=== PATIENT | male | born 1960 | race Caucasian/White ===

== ENCOUNTER → 2020-11-16 11:43 | Outpatient (ROUT) | payer OTHER, SELFPAY ==
[2020-11-16 12:08] LABS: COVID19 -Nasal RAPID POSITIVE (Negative)
== END ==
PROVIDERS: Visit Provider Family Medicine
DX: U07.1 COVID-19 (principal)
CPT/HCPCS: 87635

== ENCOUNTER → 2022-04-18 11:12 | Outpatient (CLI) | payer OTHER, SELFPAY ==
[2022-04-18 12:14] LABS: Add Manual Diff / Slide Review NO; Basophils Absolute Auto 0 /uL (0-100); Basophils Percent Auto 0.4 % (0-2); Eosinophils Absolute Auto 100 /uL (0-450); Eosinophils Percent Auto 1.6 % (2-4); Hematocrit 42.3 % (41-53); Hemoglobin 14.5 g/dL (13.5-17.5); Lymphocytes Absolute Auto 900 /uL (1100-4500); Lymphocytes Percent Auto 15.6 % (25-40); Mean Corpuscular HGB Conc 34.4 % (30-36); Mean Corpuscular Hemoglobin 29.7 PG (26-34); Mean Corpuscular Volume 86.3 fL (80-100); Monocytes Absolute Auto 400 /uL (0-900); Monocytes Percent Auto 7.4 % (3-14); Neutrophils Absolute Auto 4500 /uL (1500-7000); Platelet Count 353 X10^3/uL (150-400); Red Cell Distribution Width 13.6 % (11.6-14.8); White Blood Cell Count 6.1 X10^3/uL (4.5-11.0)
[2022-04-18 13:04] LABS: Alanine Aminotransferase 26 IU/L (<50); Albumin 4.4 g/dL (3.5-5.0); Albumin Globulin Ratio 1.8 (1.0-2.8); Alkaline Phosphatase 66 U/L (38-126); Aspartate Aminotransferase 28 IU/L (17-59); BUN Creatinine Ratio 13.5 (6-22); Bilirubin Total 0.8 mg/dL (0.2-1.3); Blood Urea Nitrogen 14 mg/dL (9-20); Calcium 9.1 mg/dL (8.4-10.2); Carbon Dioxide 31 mmol/L (22-32); Chloride 103 mmol/L (98-107); Cholesterol 216 mg/dL (140-199); Estimated Glomerular Filt Rate > 60 mL/min (>60); Globulin 2.5 g/dL (1.7-4.1); Glucose 96 mg/dL (80-110); HDL Cholesterol 54 mg/dL (40-60); HEMOLYSIS < 15 (0-50); LDL Cholesterol Calculated 132 mg/dL (<100); Potassium 4.6 mmol/L (3.4-5.1); Sodium 141 mmol/L (137-145); Total Protein 6.9 g/dL (6.3-8.2); Triglycerides 148 mg/dL (35-150)
[2022-04-18 13:36] LABS: Prostate Specific Antigen Scrn 9.72 ng/mL (0.1-4.0)
== END ==
PROVIDERS: Referring Provider Family Medicine; Visit Provider Family Medicine
DX: Z00.00 Encounter for general adult medical examination without abnormal findings (principal); Z12.5 Encounter for screening for malignant neoplasm of prostate
CPT/HCPCS: 36415; 80053; 80061; 85025; G0103

== ENCOUNTER → 2022-05-02 12:43 | Outpatient (CLI) | payer OTHER, SELFPAY ==
[2022-05-02 13:19] LABS: Add Manual Diff / Slide Review NO; Basophils Absolute Auto 0 /uL (0-100); Basophils Percent Auto 0.3 % (0-2); Eosinophils Absolute Auto 100 /uL (0-450); Hematocrit 40.5 % (41-53); Hemoglobin 14.2 g/dL (13.5-17.5); Lymphocytes Absolute Auto 1100 /uL (1100-4500); Mean Corpuscular HGB Conc 35.1 % (30-36); Mean Corpuscular Hemoglobin 30.2 PG (26-34); Mean Corpuscular Volume 85.8 fL (80-100); Monocytes Absolute Auto 400 /uL (0-900); Monocytes Percent Auto 5.8 % (3-14); Neutrophils Absolute Auto 5300 /uL (1500-7000); Neutrophils Percent Auto 76.9 % (50-75); Platelet Count 290 X10^3/uL (150-400); Red Blood Cell Count 4.72 X10^6/uL (4.5-5.9); Red Cell Distribution Width 14.1 % (11.6-14.8); White Blood Cell Count 6.9 X10^3/uL (4.5-11.0)
[2022-05-02 13:34] LABS: Appearance Urine UA CLEAR; Bilirubin Urine UA NEGATIVE (NEGATIVE); Color Urine UA YELLOW; Glucose Urine UA NEGATIVE (Negative); Ketones Urine UA NEGATIVE (NEGATIVE); Leukocyte Esterase Urine UA TRACE (NEGATIVE); Nitrite Urine UA NEGATIVE (Negative); Occult Blood Urine UA NEGATIVE (Negative); Protein Urine UA NEGATIVE (Negative); Specific Gravity Urine UA 1.015 (1.000-1.035); Urobilinogen Urine UA 0.2 E.U./dL (0.2); pH Urine UA 5.5 (4.5-8.0)
[2022-05-02 14:35] LABS: Bacteria Urine None Seen; Culture Indicated Urine Cult Not Indicated; RBC Urine None Seen (0-5/HPF); Squamous Epithelial Cell Urine None Seen (0-5/HPF); WBC Urine 0-1/HPF (0-5/HPF)
[2022-05-02 15:31] LABS: Prostate Specific Antigen 3.87 ng/mL (0.10-4.00)
== END ==
PROVIDERS: PCP Family Medicine; Referring Provider Family Medicine; Visit Provider Family Medicine
DX: R97.20 Elevated prostate specific antigen [PSA] (principal)
CPT/HCPCS: 36415; 81001; 84153; 85025

== ENCOUNTER → 2022-11-15 08:33 | Outpatient (CLI) | payer OTHER, SELFPAY ==
[2022-11-15 11:26] LABS: Alanine Aminotransferase 26 IU/L (<50); Albumin 4.3 g/dL (3.5-5.0); Albumin Globulin Ratio 1.7 (1.0-2.8); Alkaline Phosphatase 67 U/L (38-126); Aspartate Aminotransferase 27 IU/L (17-59); BUN Creatinine Ratio 12.5 (6-22); Bilirubin Total 0.7 mg/dL (0.2-1.3); Blood Urea Nitrogen 14 mg/dL (9-20); Calcium 9.1 mg/dL (8.4-10.2); Carbon Dioxide 30 mmol/L (22-32); Chloride 103 mmol/L (98-107); Cholesterol 216 mg/dL (140-199); Estimated Glomerular Filt Rate > 60 mL/min (>60); Globulin 2.5 g/dL (1.7-4.1); Glucose 107 mg/dL (80-110); HDL Cholesterol 69 mg/dL (40-60); LDL Cholesterol Calculated 133 mg/dL (<100); Potassium 4.8 mmol/L (3.4-5.1); Sodium 138 mmol/L (137-145); Total Protein 6.8 g/dL (6.3-8.2); Triglycerides 70 mg/dL (35-150)
[2022-11-15 11:33] LABS: HEMOLYSIS < 15 (0-50)
[2022-11-15 12:43] LABS: Prostate Specific Antigen 3.67 ng/mL (0.10-4.00)
== END ==
PROVIDERS: PCP Family Medicine; Referring Provider Family Medicine; Visit Provider Family Medicine
DX: E78.5 Hyperlipidemia, unspecified (principal); F10.10 Alcohol abuse, uncomplicated; F34.1 Dysthymic disorder; R97.20 Elevated prostate specific antigen [PSA]; Z00.00 Encounter for general adult medical examination without abnormal findings
CPT/HCPCS: 36415; 80053; 80061; 84153

== ENCOUNTER → 2023-06-26 14:01 | Outpatient (CLI) | payer OTHER, SELFPAY ==
[2023-06-26 19:02] LABS: Alanine Aminotransferase 35 IU/L (<50); Albumin 4.4 g/dL (3.5-5.0); Albumin Globulin Ratio 1.7 (1.0-2.8); Alkaline Phosphatase 61 U/L (38-126); Aspartate Aminotransferase 31 IU/L (17-59); BUN Creatinine Ratio 14.4 (6-22); Blood Urea Nitrogen 18 mg/dL (9-20); Carbon Dioxide 26 mmol/L (22-32); Chloride 101 mmol/L (98-107); Cholesterol 245 mg/dL (140-199); Estimated Glomerular Filt Rate > 60 mL/min (>60); Globulin 2.6 g/dL (1.7-4.1); Glucose 105 mg/dL (80-110); HDL Cholesterol 62 mg/dL (40-60); HEMOLYSIS < 15 (0-50); LDL Cholesterol Calculated 131 mg/dL (<100); Potassium 4.1 mmol/L (3.4-5.1); Sodium 138 mmol/L (137-145); Triglycerides 261 mg/dL (35-150)
[2023-06-26 19:32] LABS: Prostate Specific Antigen 3.15 ng/mL (0.10-4.00)
== END ==
PROVIDERS: PCP Family Medicine; Referring Provider Family Medicine; Visit Provider Family Medicine
DX: E78.5 Hyperlipidemia, unspecified (principal); R97.20 Elevated prostate specific antigen [PSA]
CPT/HCPCS: 36415; 80053; 80061; 84153

== ENCOUNTER → 2023-07-05 11:17 | Outpatient (CLI) | payer OTHER, SELFPAY ==
[2023-07-05 13:41] LABS: Cholesterol 243 mg/dL (140-199); HDL Cholesterol 66 mg/dL (40-60); LDL Cholesterol Calculated 146 mg/dL (<100); Triglycerides 157 mg/dL (35-150)
== END ==
PROVIDERS: PCP Family Medicine; Referring Provider Family Medicine; Visit Provider Family Medicine
DX: E78.5 Hyperlipidemia, unspecified (principal)
CPT/HCPCS: 80061

== ENCOUNTER → 2025-03-30 16:18 | Outpatient (CLI) | payer OTHER, SELFPAY ==
[2025-03-30 16:51] LABS: Add Manual Diff / Slide Review NO; Basophils Absolute Auto 0 /uL (0-100); Basophils Percent Auto 0.4 % (0-2); Eosinophils Absolute Auto 100 /uL (0-450); Eosinophils Percent Auto 3.2 % (2-4); Hematocrit 45.2 % (41-53); Hemoglobin 15.9 g/dL (13.5-17.5); Lymphocytes Absolute Auto 1000 /uL (1100-4500); Lymphocytes Percent Auto 22.1 % (25-40); Mean Corpuscular HGB Conc 35.3 % (30-36); Mean Corpuscular Hemoglobin 31.1 PG (26-34); Mean Corpuscular Volume 88.1 fL (80-100); Monocytes Absolute Auto 400 /uL (0-900); Monocytes Percent Auto 9.7 % (3-14); Neutrophils Absolute Auto 2900 /uL (1500-7000); Neutrophils Percent Auto 64.6 % (50-75); Platelet Count 315 X10^3/uL (150-400); Red Blood Cell Count 5.13 X10^6/uL (4.5-5.9); Red Cell Distribution Width 13.8 % (11.6-14.8); White Blood Cell Count 4.4 X10^3/uL (4.5-11.0)
[2025-03-30 17:12] LABS: Alanine Aminotransferase 25 IU/L (<50); Albumin 4.8 g/dL (3.5-5.0); Albumin Globulin Ratio 1.9 (1.0-2.8); Alkaline Phosphatase 71 U/L (38-126); Aspartate Aminotransferase 36 IU/L (17-59); BUN Creatinine Ratio 13.6 (6-22); Bilirubin Total 0.9 mg/dL (0.2-1.3); Blood Urea Nitrogen 14 mg/dL (9-20); Calcium 9.4 mg/dL (8.4-10.2); Carbon Dioxide 21 mmol/L (22-32); Chloride 105 mmol/L (98-107); Cholesterol 222 mg/dL (140-199); Estimated Glomerular Filt Rate > 60 mL/min (>60); Globulin 2.5 g/dL (1.7-4.1); Glucose 86 mg/dL (70-99); HDL Cholesterol 72 mg/dL (40-60); HEMOLYSIS < 15 (0-50); LDL Cholesterol Calculated 114 mg/dL (<100); Potassium 4.5 mmol/L (3.4-5.1); Sodium 139 mmol/L (137-145); Total Protein 7.3 g/dL (6.3-8.2); Triglycerides 181 mg/dL (35-150)
[2025-03-30 17:40] LABS: Prostate Specific Antigen Scrn 3.37 ng/mL (0.1-4.0)
[2025-03-30 17:43] LABS: TSH w/ Reflex to FT4 2.01 uIU/mL (0.47-4.68)
== END ==
PROVIDERS: PCP Family Medicine; Referring Provider Family Medicine; Visit Provider Family Medicine
DX: Z00.00 Encounter for general adult medical examination without abnormal findings (principal); Z12.5 Encounter for screening for malignant neoplasm of prostate
CPT/HCPCS: 36415; 80053; 80061; 84443; 85025; G0103

== ENCOUNTER 2025-08-11 14:05 | Emergency (ER) | payer OTHER, SELFPAY ==
[2025-08-11] VITALS (10 sets, daily range): BP systolic 132–177; BP diastolic 83–94; PULSE 88–109; RESP 14–24; TEMP 37.4; O2SAT 95–100; BMI 27.1
--- NOTE | 2025-08-11 14:26 | EKG_ITS ---
[address] [address] Test Date: 2025-08-11 Pat Name: Yosi Phillips Department: Room: Gender: Male Commercial Sales Representative: SHUN : 1960 Requested By: Order Number: [id number] Reading MD: Godfrey Colon MD Measurements Intervals [place] Rate: 102 P: 71 CO: 138 QRS: -57 QRSD: 86 T: 80 QT: 334 QTc: 435 Interpretive Statements Sinus tachycardia with occasional premature ventricular complexes Left anterior fascicular block Minimal voltage criteria for LVH, may be normal variant ( [place] product ) Nonspecific ST abnormality NO PRIOR TRACING Electronically Signed On 08-15-2025 7:43:49 PDT by Godfrey Colon MD
--- NOTE | 2025-08-11 14:40 | ED_ITS ---
HPI - Abdominal Pain General Chief Complaint: Abdominal Pain Stated Complaint: Pain in stomach/Diarrhea Time Seen by Provider: 08/11/25 14:14 Source: patient, RN notes reviewed and old records reviewed Mode of arrival: Ambulatory Limitations: no limitations History of Present Illness HPI narrative: 65-year-old male history of alcohol use presents with complaint of bilateral lower abdominal pain that started on Friday night with diarrhea. Patient states no black or bloody stools. He notes little bit of lower back pain bilaterally states he has chronic back pain. He is unsure if this is new or different from his normal. No fevers but he has had chills. He has had nausea but he states no persistent vomiting. He denies any chest pain or pressure. States he has a regular rate his breathing because it hurts in his belly but denies pleuritic chest pain. Patient notes no new swelling in his extremities. States it is sensation is sort of a stinging burning sensation across his lower abdomen worsened when he has a any sort of fluids. Nothing really seems to make it better other than not eating or drinking. Has not had similar symptoms in the past. States no daily medical problems. Denies any prior surgeries. Reports an allergy to yellow jackets. Does chew tobacco, drinks 6 alcoholic drinks 4-5 nights weekly denies any withdrawal symptoms if he does not have alcohol, denies any recreational drugs other than marijuana nightly. No IV or other drugs. Has a primary care physician Dr. Ray. Related Data Previous Rx's ?Medication ?Instructions ?Recorded metronidazole 1 % topical gel 1 applic topical BEDTIME Rosacea 06/07/22 (Metrogel) #60 grams escitalopram oxalate 20 mg tablet 30 mg (1.5 x 20 mg) PO DAILY #135 07/23/23 tabs hydrocodone 5 mg-acetaminophen 325 1 tab PO Q6H PRN pa in #7 tabs 08/11/25 mg tablet ondansetron 4 mg disintegrating 4 mg PO Q6H PRN nausea and 08/11/25 tablet vomiting #5 tabs Allergies Allergy/AdvReac Type Severity Reaction Status Date / Time No Known Drug Allergies Allergy Verified 08/11/25 14:22 Review of Systems Review of Systems ROS Unobtainable: All systems reviewed & are unremarkable except as noted in HPI and below Patient History Medical History Skin lesion PTSD (post-traumatic stress disorder) (~1999) Herpes (~1981) Well adult exam Alcohol abuse Borderline hyperlipidemia Depression (~1999) Elevated PSA (~2021) Seasonal allergies Family History Father History of heart disease Hypertension Hyperlipidemia Diabetes mellitus Social History Smoking Status: Never smoker Smoking Status: Never smoker Alcohol type: beer Exam Narrative Exam Narrative: GENERAL: Alert and oriented x three, male in moderate distress HEENT: Head normocephalic, atraumatic, EOMI, pupils reactive, face symmetric, moist mucous membranes NECK: Supple, full range of motion CARDIOVASCULAR: Regular rate and rhythm without murmurs, rubs or gallops. RESPIRATORY: Breath sounds equal bilaterally, no wheezes rales or rhonchi. ABDOMEN: Soft, mild bilateral lower abdominal tenderness. Normoactive bowel sounds all 4 quadrants. No guarding or rebound, rigidity, no mass, no pulsatile mass or bruit. : No CVA tenderness EXTREMITIES: Normal range of motion, no clubbing or edema. Neurovascularly intact NEUROLOGICAL: Cranial nerves II through XII grossly intact. Moving all extremities SKIN: Warm, dry, no petechiae, no rashes or lesions. Initial Vital Signs Initial Vital Signs: Vital Signs Temperature 99.3 F 08/11/25 14:17 Pulse Rate 109 H 08/11/25 14:17 Respiratory Rate 20 08/11/25 14:17 Blood Pressure 132/93 H 08/11/25 14:17 Pulse Oximetry 100 08/11/25 14:17 Oxygen Delivery Method Room Air 08/11/25 14:17 Course Orders Ordered: ED Orders 08/11/25 14:26 EKG-12 Lead Stat 08/11/25 14:30 Urine Culture Stat Urine Microscopic Stat 08/11/25 14:36 Complete Blood Count AUTO DIFF Stat Comprehensive Metabolic Panel Stat Lipase Stat 08/11/25 15:13 CT abdomen pelvis w con Stat 08/11/25 16:55 Blood Culture Stat Lactate (Lactic Acid) Stat Procalcitonin Stat Discontinued Medications Sodium Chloride (Normal Saline 0.9%) 2,721.54 mls @ 907.18 mls/hr 30 ml/kg infuse over 3 hr (2721.54 ml) IV NOW ONE Stop: 08/11/25 18:12 Last Admin: 08/11/25 16:18 Dose: 907.18 mls/hr Documented By: RADHA Morphine Sulfate (Morphine 4 Mg/Ml Inj) 4 mg IV NOW ONE Stop: 08/11/25 15:15 Last Admin: 08/11/25 16:19 Dose: 4 mg Documented By: RADHA Ondansetron HCl (Ondansetron 4 Mg/2 Ml Inj) 4 mg IV NOW PRN PRN Reason: Nausea And Vomiting Ondansetron HCl (Ondansetron 4 Mg Odt) 4 mg PO NOW PRN PRN Reason: Nausea And Vomiting Ondansetron HCl (Ondansetron 4 Mg/2 Ml Inj) 4 mg IV NOW ONE Stop: 08/11/25 15:15 Last Admin: 08/11/25 16:19 Dose: 4 mg Documented By: RADHA Vital Signs Vital signs: Vital Signs - 8 hr 08/11/25 14:17 08/11/25 14:36 08/11/25 15:00 Temperature 99.3 F Pulse Rate 109 H 100 H Respiratory Rate 20 16 Blood Pressure 132/93 H 163/89 H 162/94 H Pulse Oximetry 100 99 Oxygen Delivery Method Room Air Room Air 08/11/25 15:00 08/11/25 15:30 08/11/25 15:30 Temperature Pulse Rate 103 H 93 H Respiratory Rate 16 Blood Pressure 177/83 H Pulse Oximetry 98 99 Oxygen Delivery Method Room Air 08/11/25 16:00 08/11/25 16:00 08/11/25 16:25 Temperature Pulse Rate 97 H Respiratory Rate 20 Blood Pressure 148/86 H 150/84 H Pulse Oximetry 95 Oxygen Delivery Method 08/11/25 16:25 08/11/25 16:30 08/11/25 16:30 Temperature Pulse Rate 99 H 93 H Respiratory Rate 24 20 Blood Pressure 160/87 H Pulse Oximetry 98 Oxygen Delivery Method Room Air 08/11/25 17:00 08/11/25 17:30 08/11/25 17:40 Temperature Pulse Rate 88 92 H Respiratory Rate 15 14 Blood Pressure 161/84 H Pulse Oximetry 98 96 Oxygen Delivery Method 08/11/25 17:40 Temperature Pulse Rate 93 H Respiratory Rate 23 Blood Pressure Pulse Oximetry 98 Oxygen Delivery Method Room Air MDM - Abdominal Pain Lab Data 08/11/25 14:36 08/11/25 14:36 Labs: Lab Results 08/11/25 08/11/25 08/11/25 Range/Units 14:30 14:36 16:55 WBC 11.8 H (4.5-11.0) X10^3/uL RBC 5.55 (4.5-5.9) X10^6/uL Hgb 17.0 (13.5-17.5) g/dL Hct 48.2 (41-53) % MCV 86.9 (80-100) fL MCH 30.6 (26-34) PG MCHC 35.2 (30-36) % RDW 13.9 (11.6-14.8) % Plt Count 258 (150-400) X10^3/uL Neut % (Auto) 89.1 H (50-75) % Lymph % (Auto) 5.4 L (25-40) % [place] % (Auto) 5.1 (3-14) % Eos % (Auto) 0.1 L (2-4) % Baso % (Auto) 0.3 (0-2) % Neut # (Auto) 46580 H (2709-6439) /uL Lymph # (Auto) 600 L (7050-0863) /uL [place] # (Auto) 600 (0-900) /uL Eos # (Auto) 0 (0-450) /uL Baso # (Auto) 0 (0-100) /uL Sodium 133 L (137-145) mmol/L Potassium 3.5 (3.4-5.1) mmol/L Chloride 97 L (98-107) mmol/L Carbon Dioxide 21 L (22-32) mmol/L BUN 15 (9-20) mg/dL Creatinine 1.63 H (0.66-1.25) mg/dL Estimated GFR 46 L (>60) mL/min BUN/Creatinine Ratio 9.2 (6-22) Glucose 127 H (70-99) mg/dL Lactate 0.8 (0.7-2.1) mmol/L Calcium 9.6 (8.4-10.2) mg/dL Total Bilirubin 1.7 H (0.2-1.3) mg/dL AST 29 (17-59) IU/L ALT 18 (<50) IU/L Alkaline Phosphatase 82 (38-126) U/L Total Protein 8.1 (6.3-8.2) g/dL Albumin 4.8 (3.5-5.0) g/dL Globulin 3.3 (1.7-4.1) g/dL Albumin/Globulin Ratio 1.5 (1.0-2.8) Lipase 27 (23-300) U/L Procalcitonin 0.178 (<0.5) ng/mL Urine RBC 0-1/hpf (0-5/HPF) Urine WBC 1-5/hpf (0-5/HPF) Ur Squamous Epith Cells 0-1 /hpf (0-5/HPF) Urine Bacteria Occasional (0-1) (None) Granular Casts 0-1/lpf (None) Ur Culture Indicated? Vol Urine Centrifuged 10ml (spun) Point of care testing: Urine Dip Bedside Urine Glucose Negative Bedside Urine Bilirubin - Negative Bedside Urine Ketone +/- 5 Urine Specific [place] 1.015 Bedside Urine Occult Blood + Bedside Urine pH 6.0 Bedside Urine Protein ++ 100 Bedside Urine Urobilinogen - Negative Bedside Urine Nitrite - Negative Bedside Urine Leukocytes +/- 15 Esterase ECG Data Attestation: I personally reviewed and interpreted this ECG as follows: Prior ECG tracings: not available for review Interpretation: Sinus tachycardia occasional PVCs rate of 102 OK 138 QRS 86 QTC of 435, no acute ST-elevation or depression. No prior for comparison. [facility] Narrative Medical decision making narrative: EKG shows sinus tachycardic occasional PVCs no priors for comparison. No ST elevation depression appreciated. Labs show white count of 11 hemoglobin of 17 platelets of 258 predominance of neutrophils, chemistries shows sodium 133 chloride 97 CO2 of 21 creatinine is 1.63 past in March was 1.03, potassium is appropriate as well as BUN, glucose is 127 bilirubin is 1.7 but with normal AST ALT and lipase. Alk-phos is normal at 29. Point of care urine shows leuks, no nitrates or urobilinogen, positive for protein positive for blood, microscopy shows 1 red cell 1-5 white cells 1 squamous occasional bacteria [address] abdomen pelvis moderate generalized colonic wall thickening, correlate for infectious versus inflammatory has a colitis, no evidence of perforation or abscess, given nodular thickening consider C diff colitis. Moderate generalized bladder wall thickening, bladder outlet obstruction suspected male with a [place]. Correlate with a UTI. Normal appendix. Bilateral L5 pars defects with the associated minimal grade 1 L5-S1 anterolisthesis, L5-S1 degenerative change. Patient received fluids, antiemetics and pain medication. Discuss With the patient about observation for KRANTHI, colitis with diarrhea. Patient politely defers. Patient has not had any known recent antibiotics or exposures to C diff. he prefers to return home is comfortable to follow up and have repeat labs to check his renal function. He will try to give a sample here has not been successful so far for stool. We will give give sample and Rx for gi panel. Discussed return precautions. Discharge Plan Departure Patient Disposition: Home Clinical Impression: Colitis, KRANTHI (acute kidney injury) Instructions: DI for Colitis Activity Restrictions/Additional Instructions: Follow up for rechecked your imaging does show changes consistent with a colitis, there variety of reasons this can occur sometimes can be inflammatory versus infectious. I would recommend that you follow up to have testing of your stool for C diff colitis. Your labs did show that you has a little bit of a kidney injury or decreasing your renal function. You should follow up with your physician to have this rechecked. Make sure you are hydrating regularly. Can take Zofran 1 tablet every 6 hours for any nausea or vomiting. You can take pain medication as prescribed. This medication can make you sleepy do not drive, perform hazardous activities or make any major decisions while taking it. This medication will make you constipated please take a stool softener once to twice daily until stools are soft and regular. Prescription sent to [facility] in [place]. Please return for fevers, new or worsening abdominal back or flank pain, any persistent vomiting, any black or bloody stools, increasing or worsening diarrhea, signs of dehydration or other new or concerning changes. Prescriptions: New ondansetron 4 mg tablet,disintegrating 4 mg PO Q6H PRN (Reason: nausea and vomiting) Qty: 5 0RF hydrocodone-acetaminophen 5-325 mg tablet 1 tab PO Q6H PRN (Reason: pain) Qty: 7 0RF No Action metronidazole [Metrogel] 1 % gel 1 applic topical BEDTIME Qty: 60 1RF escitalopram oxalate 20 mg tablet 30 mg PO DAILY MDD 30mg Qty: 135 3RF Rx Instructions: Take one and one-half tablet by mouth daily. Referrals: Ray,Axel T, DO [Primary Care Provider, Family Practice] Stand Alone Forms: Patient Portal/API
[2025-08-11 14:44] LABS: Add Manual Diff / Slide Review NO; Hematocrit 48.2 % (41-53); Hemoglobin 17.0 g/dL (13.5-17.5); Lymphocytes Absolute Auto 600 /uL (1100-4500); Mean Corpuscular HGB Conc 35.2 % (30-36); Mean Corpuscular Hemoglobin 30.6 PG (26-34); Mean Corpuscular Volume 86.9 fL (80-100); Platelet Count 258 X10^3/uL (150-400)
[2025-08-11 15:00] LABS: Alanine Aminotransferase 18 IU/L (<50); Albumin 4.8 g/dL (3.5-5.0); Albumin Globulin Ratio 1.5 (1.0-2.8); Alkaline Phosphatase 82 U/L (38-126); Blood Urea Nitrogen 15 mg/dL (9-20); Calcium 9.6 mg/dL (8.4-10.2); Carbon Dioxide 21 mmol/L (22-32); Chloride 97 mmol/L (98-107); Estimated Glomerular Filt Rate 46 mL/min (>60); Globulin 3.3 g/dL (1.7-4.1); Glucose 127 mg/dL (70-99); HEMOLYSIS < 15 (0-50); Lipase 27 U/L (23-300); Potassium 3.5 mmol/L (3.4-5.1); Sodium 133 mmol/L (137-145); Total Protein 8.1 g/dL (6.3-8.2)
--- NOTE | 2025-08-11 15:13 | DI.CT.S_ITS ---
PROCEDURE: CT ABDOMEN PELVIS W CON INDICATIONS: abd pain, b/l lower x 3 days, diarrhea TECHNIQUE: After the administration of intravenous contrast, axial sections acquired from the lung bases to the pubic symphysis. Coronal and sagittal reformats were performed. For radiation dose reduction, the following was used: automated exposure control, adjustment of mA and/or kV according to patient size. COMPARISON: None. FINDINGS: Image quality: Diagnostic. Lower Chest: No significant findings. ABDOMEN: Liver: No solid mass. Gallbladder: No radiopaque gallstones or wall thickening. Biliary ducts: No biliary dilation. Pancreas: No ductal dilation. Spleen: Size is within normal limits. Adrenal Glands: No adrenal nodules. Kidneys and Ureters: No hydronephrosis. No solid mass. No complex renal cystic lesion which requires follow up. Stomach and Bowel: Moderate generalized wall thickening can be seen within the colon, with mild surrounding inflammatory change. A normal appendix is noted. No dilated loops of small bowel are seen. Peritoneum: No peritoneal abscess is seen. No abnormal intraperitoneal fluid. No free air. Ventral Wall: No significant ventral hernia. Abdominal Nodes: No retroperitoneal or mesenteric adenopathy by size criteria. Vessels: Aorta and inferior vena cava are normal in size. PELVIS: Pelvic Organs: Unremarkable. Bladder: Moderate generalized bladder wall thickening can be seen. Pelvic Nodes: No enlarged lymph nodes. Miscellaneous: No inguinal hernias are seen. Bones: No aggressive osseous abnormality. Moderate disc space narrowing can be seen at the L5-S1 level. Bilateral L5 pars defects are seen with minimal grade 1 L5-S1 anterolisthesis. IMPRESSION: Moderate generalized colonic wall thickening can be seen. Please correlate with potential infectious and inflammatory causes of colitis. No findings of perforation or abscess can be seen. Given the nodular thickening, please consider C difficile colitis. Moderate generalized bladder wall thickening can be seen. Bladder outlet obstruction is suspected in a male patient of this age. However, please correlate with UTI. Normal appendix. Additional findings: Bilateral L5 pars defects, with associated minimal grade 1 L5-S1 anterolisthesis L5-S1 degenerative change Dictated by: Ankit Danielson M.D. on 08/11/2025 at 15:17 Approved by: Ankit Danielson M.D. on 08/11/2025 at 15:19
[2025-08-11] MEDS: SODIUM CHLORIDE 0.9% 2,721.54 ML 907.18 ML IV (16:18)
[2025-08-11] MEDS: ONDANSETRON 4 MG/2 ML INJ IV (16:19)
[2025-08-11] MEDS: MORPHINE 4 MG/ML INJ IV (16:19)
[2025-08-11 17:25] LABS: Lactate (Lactic Acid) 0.8 mmol/L (0.7-2.1)
[2025-08-11 17:43] LABS: Procalcitonin 0.178 ng/mL (<0.5)
== END 2025-08-11 17:55 | disposition home or self-care (01) ==
PROVIDERS: Emergency Provider Emergency Medicine; PCP Family Medicine
DX: K52.9 Noninfective gastroenteritis and colitis, unspecified (principal); N17.9 Acute kidney failure, unspecified; M54.50 Low back pain, unspecified
CPT/HCPCS: 36415; 74177; 80053; 81003; 81015; 83605; 83690; 84145; 85025; 87040; 87086; 93005; 96361; 96374; 96375; 99284; J2270; J2405; Q9967

== ENCOUNTER 2025-08-13 14:58 | Emergency (ER) | payer OTHER, SELFPAY ==
[2025-08-13] VITALS (7 sets, daily range): BP systolic 148–161; BP diastolic 84–100; PULSE 66–87; RESP 18; TEMP 36.2; O2SAT 98–100; BMI 25.0
--- NOTE | 2025-08-13 15:31 | DI.CT.S_ITS ---
PROCEDURE: CT ABDOMEN PELVIS W CON INDICATIONS: abd pain TECHNIQUE: After the administration of intravenous contrast, axial sections acquired from the lung bases to the pubic symphysis. Coronal and sagittal reformats were performed. For radiation dose reduction, the following was used: automated exposure control, adjustment of mA and/or kV according to patient size. COMPARISON: [facility], CT, CT ABDOMEN PELVIS W CON, 08/11/2025, 15:25. FINDINGS: Image quality: Diagnostic. Lower Chest: No significant findings. ABDOMEN: Liver: No solid mass. Gallbladder: No radiopaque gallstones or wall thickening. Biliary ducts: No biliary dilation. Pancreas: No ductal dilation. Spleen: Size is within normal limits. Adrenal Glands: No adrenal nodules. Kidneys and Ureters: No hydronephrosis. No solid mass. No complex renal cystic lesion which requires follow up. Stomach and Bowel: Bowel is of normal caliber without obstruction. There is diffuse wall thickening which is not significantly changed compared to the previous exam. There is some relative sparing of portions of the transverse and descending colon which is an interval change. Peritoneum: No abnormal intraperitoneal fluid. Mesenteric edema is seen about the colon. No free air. Ventral Wall: No significant ventral hernia. Abdominal Nodes: No retroperitoneal or mesenteric adenopathy by size criteria. Vessels: Aorta and inferior vena cava are normal in size. PELVIS: Pelvic Organs: The prostate is enlarged measuring 5.4 cm in transverse dimension. Bladder: There is mild circumferential wall thickening and mass effect from the adjacent prostate. Pelvic Nodes: No enlarged lymph nodes. Miscellaneous: No inguinal hernias are seen. Bones: No aggressive osseous abnormality. IMPRESSION: Persistent diffuse bowel wall thickening consistent with colitis. Mild interval improvement in some portions of the transverse colon are shown. Dictated by: Elise Yousif M.D. on 08/13/2025 at 15:30 Approved by: Elise Yousif M.D. on 08/13/2025 at 15:36
[2025-08-13 15:53] LABS: Add Manual Diff / Slide Review NO; Hematocrit 44.1 % (41-53); Hemoglobin 15.6 g/dL (13.5-17.5); Lymphocytes Absolute Auto 1000 /uL (1100-4500); Mean Corpuscular HGB Conc 35.4 % (30-36); Mean Corpuscular Hemoglobin 30.1 PG (26-34); Mean Corpuscular Volume 85.2 fL (80-100); Platelet Count 249 X10^3/uL (150-400)
[2025-08-13] MEDS: LACTATED RINGERS 1,000 ML 1000 ML IV (15:53)
[2025-08-13] MEDS: KETOROLAC 30 MG/ML VIAL 15 MG IV (15:53)
[2025-08-13 16:10] LABS: Alanine Aminotransferase 37 IU/L (<50); Albumin 3.9 g/dL (3.5-5.0); Albumin Globulin Ratio 1.2 (1.0-2.8); Alkaline Phosphatase 66 U/L (38-126); Blood Urea Nitrogen 24 mg/dL (9-20); Calcium 9.4 mg/dL (8.4-10.2); Carbon Dioxide 23 mmol/L (22-32); Chloride 100 mmol/L (98-107); Estimated Glomerular Filt Rate > 60 mL/min (>60); Globulin 3.3 g/dL (1.7-4.1); Glucose 109 mg/dL (70-99); HEMOLYSIS < 15 (0-50); Lipase 42 U/L (23-300); Potassium 3.7 mmol/L (3.4-5.1); Sodium 133 mmol/L (137-145); Total Protein 7.2 g/dL (6.3-8.2)
--- NOTE | 2025-08-13 16:27 | ED.ABDPAIN ---
HPI - Abdominal Pain General Chief Complaint: Abdominal Pain Stated Complaint: abdominal pain Time Seen by Provider: 08/13/25 15:07 Source: patient Mode of arrival: Ambulatory History of Present Illness HPI narrative: 65-year-old gentleman heavy drinker drinks 6 cans a day IPA for 6 days out of the week seen on Friday with negative workup for abdominal pain along with diarrhea sent home with stool kits and a [place]une since today with darker stools and continued abdominal pain at this time. Pt. is able to hold things down denies any nausea, vomiting, chest pain, shortness of breath, fever, chills, body aches, urinary complaints, penile discharge, or testicular pain. Other than what is stated 14 point review of system is negative. Related Data Previous Rx's ?Medication ?Instructions ?Recorded metronidazole 1 % topical gel 1 applic topical BEDTIME Rosacea 06/07/22 (Metrogel) #60 grams escitalopram oxalate 20 mg tablet 30 mg (1.5 x 20 mg) PO DAILY #135 07/23/23 tabs hydrocodone 5 mg-acetaminophen 325 1 tab PO Q6H PRN pain #7 tabs 08/11/25 mg tablet ondansetron 4 mg disintegrating 4 mg PO Q6H PRN nausea and 08/11/25 tablet vomiting #5 tabs hydrocodone 5 mg-acetaminophen 325 1 tab PO Q4-6H PRN pain #20 tabs 08/13/25 mg tablet Allergies Allergy/AdvReac Type Severity Reaction Status Date / Time No Known Drug Allergies Allergy Verified 08/13/25 15:25 Review of Systems Review of Systems ROS Unobtainable: All systems reviewed & are unremarkable except as noted in HPI and below Patient History Medical History Skin lesion PTSD (post-traumatic stress disorder) (~1999) Herpes (~1981) Well adult exam Alcohol abuse Borderline hyperlipidemia Depression (~1999) Elevated PSA (~2021) Seasonal allergies Family History Father History of heart disease Hypertension Hyperlipidemia Diabetes mellitus Social History Smoking Status: Former smoker Smoking Status: Former smoker tobacco type: cigarettes Alcohol type: beer Exam Narrative Exam Narrative: GENERAL: [65] year old patient appears stated age. Well-developed patient, in mild distress. HEAD: Atraumatic. Normocephalic. EYES: Pupils equal round and reactive. Extraocular motions intact. No scleral icterus. No injection or drainage. ENT: Nose without bleeding, purulent drainage. Throat without erythema, tonsillar hypertrophy or exudate. Airway patent. NECK: Trachea midline. Non tender CARDIOVASCULAR: Regular rate and rhythm without murmurs, gallops, or rubs. RESPIRATORY: Clear to auscultation. Breath sounds equal bilaterally. No wheezes, rales, or rhonchi. GASTROINTESTINAL: Abdomen soft, non-tender, nondistended. EXTREMITIES: No edema or joint tenderness. BACK: Nontender without deformity or crepitance. No flank tenderness. NEURO: AOx3. SKIN: No rash or erythema of visible areas Initial Vital Signs Initial Vital Signs: Vital Signs Temperature 97.1 F L 08/13/25 15:25 Pulse Rate 87 08/13/25 15:25 Respiratory Rate 18 08/13/25 15:25 Blood Pressure 161/100 H 08/13/25 15:25 Pulse Oximetry 99 08/13/25 15:25 Oxygen Delivery Method Room Air 08/13/25 15:25 Course Orders Ordered: ED Orders 08/13/25 15:31 CT abdomen pelvis w con Stat 08/13/25 15:45 Complete Blood Count AUTO DIFF Stat Comprehensive Metabolic Panel Stat Lipase Stat Lactated Ringer's (Lactated Ringers) 1,000 mls @ 1,000 mls/hr IV BOLUS ONE Stop: 08/13/25 16:30 Last Admin: 08/13/25 15:53 Dose: 1,000 mls/hr Documented By: HERMANN Discontinued Medications Ketorolac Tromethamine (Ketorolac 30 Mg/Ml Vial) 15 mg IV NOW ONE Stop: 08/13/25 15:32 Last Admin: 08/13/25 15:53 Dose: 15 mg Documented By: HERMANN Vital Signs Vital signs: Vital Signs - 8 hr 08/13/25 15:25 Temperature 97.1 F L Pulse Rate 87 Respiratory Rate 18 Blood Pressure 161/100 H Pulse Oximetry 99 Oxygen Delivery Method Room Air MDM - Abdominal Pain Lab Data 08/13/25 15:45 08/13/25 15:45 Labs: Lab Results 08/13/25 Range/Units 15:45 WBC 6.3 (4.5-11.0) X10^3/uL RBC 5.18 (4.5-5.9) X10^6/uL Hgb 15.6 (13.5-17.5) g/dL Hct 44.1 (41-53) % MCV 85.2 (80-100) fL MCH 30.1 (26-34) PG MCHC 35.4 (30-36) % RDW 13.7 (11.6-14.8) % Plt Count 249 (150-400) X10^3/uL Neut % (Auto) 67.6 (50-75) % Lymph % (Auto) 15.9 L (25-40) % [place] % (Auto) 15.4 H (3-14) % Eos % (Auto) 0.8 L (2-4) % Baso % (Auto) 0.3 (0-2) % Neut # (Auto) 4200 (8774-2537) /uL Lymph # (Auto) 1000 L (8417-2571) /uL [place] # (Auto) 1000 H (0-900) /uL Eos # (Auto) 100 (0-450) /uL Baso # (Auto) 0 (0-100) /uL Sodium 133 L (137-145) mmol/L Potassium 3.7 (3.4-5.1) mmol/L Chloride 100 (98-107) mmol/L Carbon Dioxide 23 (22-32) mmol/L BUN 24 H (9-20) mg/dL Creatinine 1.30 H (0.66-1.25) mg/dL Estimated GFR > 60 (>60) mL/min BUN/Creatinine Ratio 18.5 (6-22) Glucose 109 H (70-99) mg/dL Calcium 9.4 (8.4-10.2) mg/dL Total Bilirubin 0.8 (0.2-1.3) mg/dL AST 60 H (17-59) IU/L ALT 37 (<50) IU/L Alkaline Phosphatase 66 (38-126) U/L Total Protein 7.2 (6.3-8.2) g/dL Albumin 3.9 (3.5-5.0) g/dL Globulin 3.3 (1.7-4.1) g/dL Albumin/Globulin Ratio 1.2 (1.0-2.8) Lipase 42 D (23-300) U/L Imaging Data CT scan - abdomen/pelvis: Radiologist's Impression: [address] [address] [address] Scan Report Signed Patient: Yosi Phillips MR#: [id number] : 1960 Acct:[id number] Age/Sex: 65 / M Date of Service: 08/13/25 Loc: ED Accession Number: [id number] Procedure: CT abdomen pelvis w con Ordering Provider: Godfrey Terrell D.O. PROCEDURE: CT ABDOMEN PELVIS W CON INDICATIONS: abd pain TECHNIQUE: After the administration of intravenous contrast, axial sections acquired from the lung bases to the pubic symphysis. Coronal and sagittal reformats were performed. For radiation dose reduction, the following was used: automated exposure control, adjustment of mA and/or kV according to patient size. COMPARISON: [facility], CT, CT ABDOMEN PELVIS W CON, 08/11/2025, 15:25. FINDINGS: Image quality: Diagnostic. Lower Chest: No significant findings. ABDOMEN: Liver: No solid mass. Gallbladder: No radiopaque gallstones or wall thickening. Biliary ducts: No biliary dilation. Pancreas: No ductal dilation. Spleen: Size is within normal limits. Adrenal Glands: No adrenal nodules. Kidneys and Ureters: No hydronephrosis. No solid mass. No complex renal cystic lesion which requires follow up. Stomach and Bowel: Bowel is of normal caliber without obstruction. There is diffuse wall thickening which is not significantly changed compared to the previous exam. There is some relative sparing of portions of the transverse and descending colon which is an interval change. Peritoneum: No abnormal intraperitoneal fluid. Mesenteric edema is seen about the colon. No free air. Ventral Wall: No significant ventral hernia. Abdominal Nodes: No retroperitoneal or mesenteric adenopathy by size criteria. Vessels: Aorta and inferior vena cava are normal in size. PELVIS: Pelvic Organs: The prostate is enlarged measuring 5.4 cm in transverse dimension. Bladder: There is mild circumferential wall thickening and mass effect from the adjacent prostate. Pelvic Nodes: No enlarged lymph nodes. Miscellaneous: No inguinal hernias are seen. Bones: No aggressive osseous abnormality. IMPRESSION: Persistent diffuse bowel wall thickening consistent with colitis. Mild interval improvement in some portions of the transverse colon are shown. MDM Narrative Medical decision making narrative: All lab work, vital signs, nurse triage note, medication list, previous ER visits, and all imaging studies reviewed. Normal white count sodium 133 BUN 24 creatinine 1.3 glucose 109 AST [address] scan shows persistent diffuse bowel wall thickening consistent with colitis. Mild interval improvement in some portion of the transverse colon are seen. WBC 6.3 sodium 133 BUN 24 creatinine 1.3 potassium 3.7 glucose 109 AST 60 lipase 42. Differential diagnosis pancreatitis, constipation, small bowel obstruction, diverticulitis, colitis. DC home on [place] and clear liquids. Discharge Plan Departure Patient Disposition: Home Clinical Impression: Colitis Instructions: DI for Colitis Activity Restrictions/Additional Instructions: Return with new or worsening symptoms. Keep hydrated. Clear liquid diet advance as tolerated. Follow up with PCP on Friday appointment. Take your medicine directed. Prescriptions: New hydrocodone-acetaminophen 5-325 mg tablet 1 tab PO Q4-6H PRN (Reason: pain) Qty: 20 0RF No Action metronidazole [Metrogel] 1 % gel 1 applic topical BEDTIME Qty: 60 1RF escitalopram oxalate 20 mg tablet 30 mg PO DAILY MDD 30mg Qty: 135 3RF Rx Instructions: Take one and one-half tablet by mouth daily. ondansetron 4 mg tablet,disintegrating 4 mg PO Q6H PRN (Reason: nausea and vomiting) Qty: 5 0RF hydrocodone-acetaminophen 5-325 mg tablet 1 tab PO Q6H PRN (Reason: pain) Qty: 7 0RF Referrals: Axel Ray DO [Primary Care Provider, [facility]] Stand Alone Forms: Patient Portal/API
[2025-08-13] MEDS: PANTOPRAZOLE 40 MG VIAL IV (17:12)
[2025-08-16 13:13] LABS: Salmonella/Shigella Screen Final report (.)
[2025-08-16 15:36] LABS: E coli Shiga Toxin EIA Negative (Negative)
== END 2025-08-13 17:58 | disposition home or self-care (01) ==
PROVIDERS: Emergency Provider Family Medicine; PCP Family Medicine
DX: K52.9 Noninfective gastroenteritis and colitis, unspecified (principal)
CPT/HCPCS: 74177; 80053; 83690; 85025; 87045; 87177; 96361; 96374; 96375; 99283; 99284; J1885; J2470; Q9967